=== PATIENT | male | born 1975 | race Caucasian/White ===

== ENCOUNTER 2018-03-24 21:18 | Emergency (ER) | payer OTHER ==
[~2018-03-24] VITALS: Ht 170.2 cm; Wt 79.4 kg
[~2018-03-24 21:18] MED LIST: HYDACE5 PO; KETO10 PO
[2018-03-26 14:10] LABS: FINAL INTERPRETATION Negative (.); HIV 1 AB Negative (Negative); HIV 2 AB Negative (Negative)
== END 2018-03-24 22:10 | disposition home or self-care (01) ==
LOC: ER 21:18
PROVIDERS: Physician Assistant
DX: Z77.21 Contact with and (suspected) exposure to potentially hazardous body fluids (principal)
CPT/HCPCS: 36415; 84450; 86701; 86702; 86803; 99283

== ENCOUNTER 2018-07-10 10:23 | Emergency (ER) | payer OTHER ==
[~2018-07-10] VITALS: Ht 170.2 cm; Wt 79.4 kg
[2018-07-11 07:21] LABS: HCV ANTIBODY <0.1 (0.0-0.9); HIV SCREEN 4TH GENERATION WRFX Non Reactive (Non Reactive)
== END 2018-07-10 10:59 | disposition home or self-care (01) ==
LOC: ER 10:23
PROVIDERS: Physician Assistant
DX: Z03.89 Encounter for observation for other suspected diseases and conditions ruled out (principal)
CPT/HCPCS: 36415; 84460; 86317; 86803; 87389; 99282